=== PATIENT | male | born 1995 | race Caucasian/White ===

== ENCOUNTER 2022-02-09 13:29 | Observation (INO) ==
[2022-02-09] MEDS ORDERED: Ondansetron 4 MG/2 ML VIAL IVP PRN (20:00)
[2022-02-09] MEDS ORDERED: Acetaminophen 325 MG TABLET PO PRN (20:00)
[2022-02-09] MEDS ORDERED: Naloxone 0.4 MG/ML INJ IVP PRN (20:00)
[2022-02-09] MEDS ORDERED: Melatonin 3 MG TABLET PO PRN (20:00)
[2022-02-09] MEDS ORDERED: Dextrose Gel 15 GM/37.5 ML TUBE PO PRN ×2 (20:41)
[2022-02-09] MEDS ORDERED: *HR* Dextrose 50 % in Water (Syg) 50 ML SYRINGE IVP PRN (20:41)
[2022-02-09] MEDS ORDERED: D5% in Water 1,000 ML IVC PRN (20:41)
[2022-02-09] MEDS: Hydrocortisone Sodium Succ 100 MG/2 ML VIAL IVP SCH (21:29)
[2022-02-09 22:28] LABS: Estimated Average Glucose 120 mg/dl; Hemoglobin A1C 5.8 %
[2022-02-10] MEDS: 0.9 % Sodium Chloride 1,000 ML IVC SCH ×2 (01:43→10:22)
[2022-02-10] MEDS: Hydrocortisone Sodium Succ 100 MG/2 ML VIAL IVP SCH ×3 (03:38→15:45)
[2022-02-10 05:28] LABS: Basophils % 0.1 %; Hematocrit 36.9 % (37.5-50.1); Hemoglobin 12.5 g/dL (12.9-16.9); Immature Granulocytes % 0.3 % (0-4); Lymphocytes % 14.4 %; Mean Corpuscular HGB Conc 33.9 g/dL (31.6-35.5); Mean Corpuscular Hemoglobin 28.8 pg (28.0-33.3); Mean Platelet Volume 12.5 fL (9.4-12.4); Monocytes # 0.4 K/mcL (0.0-1.3); Monocytes % 5.5 %; Neutrophils # 5.6 K/mcL (1.6-8.9); Platelet Count 180 K/mcL (140-400); Red Blood Count 4.34 M/mcL (4.19-5.50); Red Cell Distribution Width 12.1 % (11.5-14.5); Segmented Neutrophils % 79.7 %
[2022-02-10 05:34] LABS: INR 1.1; Prothrombin Time 12.8 Seconds (9.4-12.1)
[2022-02-10 05:37] LABS: Activated Partial Thrombo Time 28.6 Seconds (26.0-36.0)
[2022-02-10 05:50] LABS: Alanine Aminotransferase 46 Units/L (7-52); Albumin 3.5 g/dL (3.5-5.7); Albumin/Globulin Ratio 1.5 (1.1-2.2); Alkaline Phosphatase 57 Units/L (34-104); Aspartate Amino Transferase 28 Units/L (13-39); BUN/Creatinine Ratio 14 (6-26); Bilirubin,Total 0.3 mg/dL (0.3-1.0); Blood Urea Nitrogen 13 mg/dL (6-20); Calcium 8.7 mg/dL (8.6-10.3); Carbon Dioxide 25 mEq/L (23-29); Chloride 108 mEq/L (98-107); Globulin 2.3 g/dL (2.4-3.5); Glucose 120 mg/dL (70-105); Magnesium 1.9 mg/dL (1.6-2.6); Osmolality,Calculated 283 (280-300); Phosphorous 4.2 mg/dL (2.7-4.5); Potassium 4.3 mEq/L (3.5-5.1); Sodium 136 mEq/L (136-145); Total Protein 5.8 g/dL (6.4-8.9); eGFR For African Americans > 60 (> 60); eGFR For Non-African Americans > 60 (> 60)
[2022-02-10] MEDS: *HR* Enoxaparin 40 MG/0.4 ML SYRINGE SQ SCH (06:11)
[2022-02-10] MEDS: Loratadine 10 MG TABLET PO SCH (10:11)
[2022-02-10] MEDS: Multivit/Ca/Min/Fe/FA 1 TAB TABLET PO SCH (10:11)
[2022-02-10] MEDS: Fluticasone Propionate Nasal 50 MCG/SPRAY BOTTLE NS SCH (10:23)
[2022-02-11] MEDS: Hydrocortisone Sodium Succ 100 MG/2 ML VIAL IVP SCH (00:07)
[2022-02-11] MEDS ORDERED: 0.9 % Sodium Chloride 1,000 ML IVC ONE (05:27)
[2022-02-11] MEDS: *HR* Enoxaparin 40 MG/0.4 ML SYRINGE SQ SCH (05:38)
[2022-02-11] MEDS: Loratadine 10 MG TABLET PO SCH (08:58)
[2022-02-11] MEDS: Multivit/Ca/Min/Fe/FA 1 TAB TABLET PO SCH (08:58)
[2022-02-11] MEDS: Fluticasone Propionate Nasal 50 MCG/SPRAY BOTTLE NS SCH (08:58)
[2022-02-11] MEDS ORDERED: Hydrocortisone 10 MG TABLET PO SCH ×2 (09:00→14:00)
[2022-02-11 10:43] VITALS: BP 113/73; PULSE 99; TEMP 98.6; O2SAT 99
== END 2022-02-11 11:54 | disposition home or self-care (01) ==
LOC: 3ANU → SUATTDRO 19:28
PROVIDERS: ADMIT Internal Medicine; ATTEND Hospitalist